=== PATIENT | female | born 1950 | race Caucasian/White ===

== ENCOUNTER 2023-10-28 07:53 | Outpatient (CLI) | payer MEDICARE, BC ==
[2023-10-28 14:22] LABS: BASOPHILS # (AUTO) 0.1 10^3/uL (0.0-0.1); EOSINOPHILS # (AUTO) 0.1 10^3/uL (0.0-0.7); EOSINOPHILS % (AUTO) 2.4 %; HCT - HEMATOCRIT 42.3 % (37.0-47.0); LYMPHOCYTES # (AUTO) 1.9 10^3/uL (1.5-3.5); MEAN CORPUSCULAR HEMOGLOBIN 29.5 pg (27.0-31.0); MEAN CORPUSCULAR HGB CONC 30.7 g/dL (32.0-36.0); MEAN CORPUSCULAR VOLUME 96.1 fL (81.0-99.0); MEAN PLATELET VOLUME 10.3 fL (7.9-10.8); MONOCYTES # (AUTO) 0.6 10^3/uL (0.0-1.0); MONOCYTES % (AUTO) 9.4 %; NEUTROPHILS # (AUTO) 3.2 10^3/uL (1.5-6.6); PLT - PLATELET COUNT 341 10^3/uL (130-450); RED CELL DISTRIBUTION WIDTH 14.6 % (12.0-15.0); WHITE BLOOD COUNT 5.8 x10^3/uL (4.8-10.8)
[2023-10-28 16:06] LABS: ALBUMIN/GLOBULIN RATIO 1.5 (1.0-2.2); ALKALINE PHOSPHATASE 40 IU/L (42-121); ALT ALANINE AMINOTRANSFERASE 9 IU/L (10-60); AST ASPARTATE AMINOTRANSFERASE 11 IU/L (10-42); BILIRUBIN,TOTAL 0.9 mg/dL (0.2-1.0); BUN - BLOOD UREA NITROGEN 20 mg/dL (6-20); CARBON DIOXIDE - CO2 29 mmol/L (21-32); CHLORIDE 105 mmol/L (101-111); CHOL/HDL RATIO 3.2 (<4.4); CHOLESTEROL 232 mg/dL; CREATININE 0.8 mg/dL (0.6-1.3); GFR - MDRD 70 (>89); GLUCOSE 98 mg/dL (74-104); HDL CHOLESTEROL 72 mg/dL; LDL CHOLESTEROL,CALCULATED 147 mg/dL; POTASSIUM 4.1 mmol/L (3.5-4.5); SODIUM 140 mmol/L (135-145); TOTAL PROTEIN 6.7 g/dL (6.4-8.9); TRIGLYCERIDES 67 mg/dL (48-352); VLDL CHOLESTEROL 13 mg/dL
[2023-10-28 17:38] LABS: THYROID STIMULATING HORMONE 2.17 uIU/mL (0.34-5.60)
[2023-10-28 17:49] LABS: ESTIMATED AVERAGE GLUCOSE 114 mg/dL (70-100); HEMOGLOBIN A1c% 5.6 % (4.27-6.07)
== END 2023-10-28 07:54 | disposition home or self-care (01) ==
LOC: LAB.S 07:53
PROVIDERS: ATTEND Internal Medicine
DX: G47.30 Sleep apnea, unspecified (principal); R73.09 Other abnormal glucose; R53.81 Other malaise; E55.9 Vitamin D deficiency, unspecified; R53.83 Other fatigue
CPT/HCPCS: 36415; 80053; 80061; 82306; 82652; 83036; 83721; 84439; 84443; 84481; 85025

== ENCOUNTER 2023-12-12 12:32 | Outpatient (CLI) | payer MEDICARE, BC ==
[2023-12-14 13:43] VITALS: BP 136/73; O2SAT 98
--- NOTE | 2023-12-14 13:43 | SLEEP CARE CONSULTATION ---
Information from patient questionnaire entered by Falguni Thomas. I have reviewed and concur with the information entered by Falguni Thomas. This document represents the service I personally performed and the decisions made by me, Huyen Garrison MD, [facility]. History of Present Illness Service Date and Time: 12/12/2023 1232 Reason for Visit: New patient Chief Complaint: reports: Unrefreshed sleep, Snoring, Excessive daytime sleepiness, Observed pauses in breathing Date of Onset: 8-10YRS Usual bedtime: 930PM Time it takes to fall asleep: 1.5HRS Snores at night: Yes Observed to quit breathing while asleep: Yes Sleeps alone due to snoring: Yes Number of times waking at night: 3-4 Reasons for waking at night: reports: Snoring, Gasping for air, Bathroom Toss, Turn, or Twitch while sleeping: No Recalls having dreams: Yes Usually gets out of bed at: 630-730AM Feels refreshed in the morning: No Morning headache: No Sleepy or fatigued during the day: Yes Takes day naps: Yes Dreams during day naps: No Prior sleep studies: Yes Additional HPI information: I have the pleasure of seeing Ms. Armas along with her today regarding the possibility of her having obstructive sleep apnea. As you know, she is a 73-year-old lady who was diagnosed with obstructive sleep apnea- hypopnea over 10 years ago in [place]. She thinks the sleep-related breathing disorder was moderate to severe. A CPAP was prescribed. She used it with a full face mask for about a week then returned it. She said it was too cumbersome. She reports chronic nasal congestion. Her complains of her loud snore and has to fall asleep before she comes into bed. He also sees her quit breathing in her sleep. The patient tells me that she normally goes to bed around 9:30 pm. She can recall waking up on the average of 3 - 4 times during the night. During the day she complains of feeling sleepy and fatigued. Her score on Gardiner Sleepiness Scale is 14 out of 24. She has fallen asleep while driving and has gone out of the [place]. - Parasomnia Symptoms Ever been unable to move upon waking from sleep: No Walks in sleep: No Talks in sleep: No Ever acted out dreams in sleep: No Ever felt weak in the knees when startled or emotional: No Bothered by creepy, crawly, restless sensations in legs: No Problems with memory or concentration: No Subjective Initial Gardiner Sleepiness Scale score: 14 (11/05/23) Past Medical History Past Medical History: reports: Arthritis Social History The patient's occupation is a RETIRED. Patient is and lives in . Have you smoked in the past 12 months: No Cigarettes per day (20/pack): 20 Years of smokin Quit date: 1979 Smoking Pack Years: 13.0 Alcohol use: Yes Alcohol amount and frequency: 2-3 DRINKS WEEKLY Caffeine use: Yes Caffeine amount and frequency: 3-4 CUPS COFFEE DAILY Family History Family history of sleep disordered breathing: Yes Family Hx Sleep Apnea: Father: Snoring, Sibling: Snoring Allergies and Home Medications Known drug allergies: Yes Drug allergies reviewed: Yes Home medication list reviewed: Yes Review of Systems Cardiovascular: denies: high blood pressure, palpitations, chest pain, irregular heart rate or pulse, leg or foot swelling, have to sleep sitting up, other Respiratory: reports: sputum production Gastrointestinal: denies: heartburn, difficulty swallowing, nausea, vomitting, diarrhea, abdominal pain, other Urinary: reports: frequency Neurological: denies: headaches, seizure, head trauma, disorientation, speech dysfunction, gait or balance problems, fainting or unconsciousness, other Psychiatric: reports: anxiety Ear/Nose/Throat: reports: nasal congestion, sinus problems Endocrine: reports: increased urination Musculoskeletal: reports: joint pain, joint swelling Physical Exam Vital signs obtained and entered by: FALGUNI Gamble MA Blood Pressure: 136/73 (RIGHT ARM) Cuff size: regular Heart Rate: 66 O2 Saturation: 98 Height: 5 ft 8.25 in Weight: 222 lb Body Mass Index: 33.5 BMI Classification: Obese Neck circumference: 14 Mood/affect: Normal HEENT: No craniofacial malformation Nostrils: patent to airflow Turbinates: normal Septum: midline Mouth and throat: narrow oropharynx Soft palate: long Hard palate: normal Uvula: normal Uvula visualization: 25% Mallampati Class III Tongue: normal in size Tonsils: small Chin and jaw: normal size and position Neck: normal w/o lymphadenopathy or thyromegaly Heart: regular rate and rhythm Lungs: clear bilaterally Extremities: no edema or clubbing Neurologic: intact Impression and Plan IMPRESSION: 1. Obstructive Sleep Apnea-Hypopnea Syndrome, as previously diagnosed but untreated. The severity is unknown as we do not have her sleep study report. She appears to be symptomatic for loud snore, frequent awakenings, unrefreshed sleep, and excessive daytime sleepiness. Narrow oropharynx and obesity are common predisposing factors for obstructive sleep apnea-hypopnea syndrome. Therefore, a new in-laboratory polysomnography is needed to confirm the sleep-related breathing disorder and its severity. I informed the patient of what the sleep studies involve and after some discussion, she agreed to proceed. Plan: 1. Schedule polysomnography +/- manual CPAP titration study and return in 1 to 2 weeks after the study to discuss result and initiate therapy. 2. Avoid long distance driving or when feeling sleepy. 3. Avoid alcohol, sedative and muscle relaxant around bedtime. 4. Attempt to lose weight. Counseling Topics: Weight control Follow up with Sleep Care in: 1-2 months Follow up recommended for: Weight management Visit Type: In Office Other Participants: Spouse/Significant Other Time Spent with Patient (minutes): 15 Provider Statement: I spent 100% of the Face to Face Visit with the patient with greater than 50% spent counseling the patient and coordination of care.
== END 2023-12-12 12:33 | disposition home or self-care (01) ==
LOC: SC 12:32
PROVIDERS: ATTEND Internal Medicine Pulmonary Disease
DX: G47.33 Obstructive sleep apnea (adult) (pediatric) (principal); E66.9 Obesity, unspecified; Z68.33 Body mass index [BMI] 33.0-33.9, adult
CPT/HCPCS: 99202; G0463; 99212

== ENCOUNTER 2024-01-31 19:25 | Outpatient (CLI) | payer MEDICARE, BC | END 2024-01-31 19:26 | disposition home or self-care (01) | LOC: SC 19:25 | PROVIDERS: ATTEND Internal Medicine Pulmonary Disease | DX: G47.33 Obstructive sleep apnea (adult) (pediatric) (principal); E66.9 Obesity, unspecified; Z68.33 Body mass index [BMI] 33.0-33.9, adult | CPT/HCPCS: 95810 ==

== ENCOUNTER 2024-02-13 09:59 | Outpatient (CLI) | payer MEDICARE, BC ==
--- NOTE | 2024-02-13 21:39 | SLEEP CARE CONSULTATION ---
Information from patient questionnaire entered by Konrad Thomas. I have reviewed and concur with the information entered by Konrad Thomas. This document represents the service I personally performed and the decisions made by me, Huyen Garrison MD, [facility]. History of Present Illness Service Date and Time: 02/13/2024 0959 Initial Geismar Sleepiness Scale score: 14 Current Geismar Sleepiness Scale score: 10 (02/13/24) Additional HPI information: Ms. Armas returned for follow up of the sleep study she had on 01/31/2024. The polysomnography showed that the patient had reduced sleep efficiency due to sleep onset insomnia and a prolonged awakening in the middle of the night. The sleep architecture was abnormal for sleep fragmentation and reduced amount of time spent in slow wave sleep (N3). Respiratory monitoring showed mild obs tructive sleep apnea-hypopnea (AHI = 14.4) associated with frequent arousals, oxyhemoglobin desaturation and moderate hypoxia (ruy oxygen saturation of 78 %). Baseline oxygen saturation was normal. The respiratory events occurred predominantly during supine sleep (supine AHI = 30.6; non-supine = 5.92). Snore was moderate to loud in intensity. There was no significant periodic leg movement of sleep. Cardiac rhythm was normal sinus rhythm without significant arrhythmia. No abnormal behavior (parasomnia) observed during the night. The patient was informed of these findings. I explained to her the pathophysiology behind obstructive sleep apnea. We then spent quite a bit of time discussing different treatment options. For mild obstructive sleep apnea, surgery and oral appliance are alternatives to nasal CPAP therapy but in moderate or severe cases, nasal CPAP is the most effective and reliable treatment. After some discussion, she opted to try using a CPAP again. She was prescribed a CPAP 10 years ago but did not tolerate. She was fitted with a full face mask. Sleep Study - Results Type of Sleep Study: Polysomnography (COMPLETED 01/31/2024) Prior sleep studies: Yes Allergies and Home Medications Drug allergies reviewed: Yes Home medication list reviewed: Yes Allergy and home medication list: Allergies hydroxyzine Allergy (Verified 02/09/24 09:16) Review of Systems Review of systems same as previous: Yes Physical Exam Vital signs obtained and entered by: KONRAD Gamble MA Blood Pressure: 137/73 (RIGHT ARM) Cuff size: regular Heart Rate: 62 O2 Saturation: 97 Height: 5 ft 8.25 in Weight: 227 lb Body Mass Index: 34.2 BMI Classification: Obese Impression and Plan IMPRESSION: 1. Obstructive Sleep Apnea-Hypopnea Syndrome, mild, and positional. Possibly, this is the cause of the patients symptoms of unrefreshed sleep, and excessive daytime sleepiness (Geismar Sleepiness Scale score = 14). Her also has an issue with her loud snores. As mentioned above, the patient will be started on an autoCPAP set at 4 - 12 cmH2O. Depending on her response and compliance she may be brought back for an overnight CPAP titration study. PLAN: 1. Prescription made for an autoCPAP, heated humidifier, and related supplies. The patient will call us in few days to let us know where to send the prescription. She [place] [facility] and plans to go to a durable medical supplier in [place]. 2. Avoid sleeping supine if not using CPAP. 3. Return for follow up after one month of using the CPAP. Prescriptions: Auto CPAP Follow up with Sleep Care in: 1-2 months Visit Type: In Office Time Spent with Patient (minutes): 15 Provider Statement: I spent 100% of the Face to Face Visit with the patient with greater than 50% spent counseling the patient and coordination of care.
[2024-02-13 21:44] VITALS: BP 137/73; O2SAT 97
== END 2024-02-13 10:00 | disposition home or self-care (01) ==
LOC: SC 09:59
PROVIDERS: ATTEND Internal Medicine Pulmonary Disease
DX: G47.33 Obstructive sleep apnea (adult) (pediatric) (principal)
CPT/HCPCS: 99212; G0463

== ENCOUNTER 2024-06-04 14:27 | Outpatient (CLI) | payer MEDICARE, BC ==
--- NOTE | 2024-06-05 08:23 | SLEEP CARE CONSULTATION ---
Information from patient questionnaire entered by Konrad Thomas. I have reviewed and concur with the information entered by Konrad Thomas. This document represents the service I personally performed and the decisions made by me, Huyen Garrison MD, [facility]. History of Present Illness Service Date and Time: 06/04/2024 1427 Reason for follow up: first compliance Equipment type: CPAP (RESMED) Prior sleep studies: Yes Type of Sleep Study: Polysomnography (COMPLETED 01/31/2024) HPI additional information: Ms. Armas was diagnosed to have mild obstructive sleep apnea-hypopnea syndrome and returns today for follow up of CPAP therapy. The patient purchased the device from [employer] and was fitted with a nasal mask. She uses the device almost every night and all night. The compliance report shows that she uses the device 24 nights out of the past 30 nights, averaging 5.8 hours a night. She complains of no particular problem with the device such as soreness on the face, dry nose, epistaxis, nasal congestion or headache. She thinks that the pressure of 4 - 12 cmH2O is comfortable. On the CPAP therapy she notices improvement in her sleep quality, and that she wakes up feeling fresher in the morning and more awake/alert during the day. Brick Sleepiness Scale score is 6. The average residual AHI is 1.7; and average air leak is 0.2 L/minute. The 90th percentile pressure is 7.1 cmH2O. Sleep Study - Results Type of Sleep Study: Polysomnography (COMPLETED 01/31/2024) Prior sleep studies: Yes CPAP Compliance Data - Data Reviewed with Patient Average duration of nightly device use: 5HRS 45MINS Compliance rate %: 80 (03/15/24-04/13/24) Current pressure setting (cmH2O): 4-12 Average residual AHI: 1.7 Subjective Missed days of use due to: reports: mask issues Patient concerns: reports: mask discomfort Current pressure setting perceived as: comfortable Initial Brick Sleepiness Scale score: 14 Current Brick Sleepiness Scale score: 6 (06/04/24) Allergies and Home Medications Drug allergies reviewed: Yes Home medication list reviewed: Yes Allergy and home medication list: Allergies hydroxyzine Allergy (Verified 05/10/24 08:29) Review of Systems Review of systems same as previous: Yes (HEARING AIDS) Physical Exam Vital signs obtained and entered by: KONRAD Gamble MA Blood Pressure: 128/73 (LEFT ARM) Cuff size: long Heart Rate: 72 O2 Saturation: 96 Height: 5 ft 8 in Weight: 231 lb 12.8 oz Body Mass Index: 35.2 BMI Classification: Obese Impression and Plan IMPRESSION: 1. Obstructive Sleep Apnea-Hypopnea Syndrome, mild (14.4) with the patient having good CPAP compliance and noticeable benefits. The current pressure setting appears effective and comfortable. Overall, she is very satisfied with the treatment and plans to continue with it long-term. No adjustment is necessary today except for her to try nasal masks because the nasal pillows hurt her nostrils. PLAN: 1. Continue with autoCPAP set at 4 - 12 cm H2O. 2. Try a ResMed N30 mask or [employer] nasal mask. 3. Avoid sleeping supine if not using the CPAP. 4. Return for a follow up in a year or earlier if there is any problem. Follow up with Sleep Care in: 1 year Visit Type: In Office Time Spent with Patient (minutes): 15 Provider Statement: I spent 100% of the Face to Face Visit with the patient with greater than 50% spent counseling the patient and coordination of care.
[2024-06-05 08:33] VITALS: BP 128/73; O2SAT 96
== END 2024-06-04 14:28 | disposition home or self-care (01) ==
LOC: SC 14:27
PROVIDERS: ATTEND Internal Medicine Pulmonary Disease
DX: G47.33 Obstructive sleep apnea (adult) (pediatric) (principal); E66.9 Obesity, unspecified; Z68.35 Body mass index [BMI] 35.0-35.9, adult
CPT/HCPCS: 99212; G0463